=== PATIENT | female | born 1950 | race Hispanic/Latino ===

== ENCOUNTER 2023-06-09 08:42 | Outpatient (CLI) | payer MEDICARE, OTHER ==
[2023-06-09] MEDS ORDERED: Magnevist 469MG/ML 20 ML VIAL ONE (10:24)
== END 2023-06-09 08:43 | disposition home or self-care (01) ==
LOC: BICMRI 08:42
PROVIDERS: ATTEND Surgery
DX: C50.919 Malignant neoplasm of unspecified site of unspecified female breast (principal)
CPT/HCPCS: C8908